=== PATIENT | female | born 1975 | race Caucasian/White ===

== ENCOUNTER 2016-12-21 10:00 | Emergency (ER) | payer BC, OTHER ==
[2016-12-21 10:23] VITALS: BP 147/100; PULSE 70; TEMP 97.4; BMI 25.4
[2016-12-21] MEDS ORDERED: ONDANSETRON 4 MG/2 ML VIAL IVPUSH ONE (11:25)
[2016-12-21] MEDS ORDERED: SODIUM CHLORIDE 1,000 ML IV STA (11:25)
[2016-12-21] MEDS ORDERED: KETOROLAC TROMETHAMINE 30 MG/1 ML VIAL IVPUSH ONE (11:25)
--- NOTE | 2016-12-21 11:28 | PDOC ---
History of Present Illness - General Chief Complaint: Pain, Acute Stated Complaint: VOMITING Time Seen by Provider: 12/21/16 10:54 History Source: Patient - History of Present Illness Timing/Duration: reports: getting worse Quality: reports: severe Abdominal Pain Onset Location: reports: LLQ, flank Past History - Past Medical History Allergies/Adverse Reactions: Allergies Allergy/AdvReac Type Severity Reaction Status Date / Time No Known Allergies Allergy Verified 12/21/16 10:20 Home Medications: Ambulatory Orders Cyclobenzaprine HCl [Flexeril -] 10 mg PO TID 12/21/16 Gabapentin [Neurontin -] 300 mg PO Q8H 12/21/16 Meloxicam [Mobic] 15 mg PO DAILY 12/21/16 Ondansetron HCl [Zofran] 4 mg PO Q8H #12 tablet 12/21/16 Tamsulosin HCl [Flomax] 0.4 mg PO DAILY #7 cap.er.24h 12/21/16 Tramadol HCl 50 mg PO Q6H #20 tablet MDD 200mg 12/21/16 Other medical history: neck pain - Immunization History Immunization Up to Date: Yes - Suicide/Smoking/Psychosocial Hx Smoking History: Never smoked Hx Alcohol Use: No Drug/Substance Use Hx: No Review of Systems - Review of Systems Constitutional: No: Chills, Fever ABD/GI: Yes: Nausea, Vomiting, Abdominal cramping. No: Constipated, Diarrhea : Yes: Flank Pain. No: Dysuria, Hematuria *Physical Exam - Vital Signs Last Vital Signs Temp Pulse Resp BP Pulse Ox 97.4 F L 70 20 147/100 100 12/21/16 10:20 12/21/16 10:20 12/21/16 10:20 12/21/16 10:20 12/21/16 10:20 - Physical Exam General Appearance: Yes: Appropriately Dressed, Severe Distress HEENT: positive: Normal Voice Neck: positive: Supple Respiratory/Chest: negative: Respiratory Distress Gastrointestinal/Abdominal: positive: Tender (to LLQ/flabk), Soft. negative: Distended, Guarding, Rebound Musculoskeletal: negative: CVA Tenderness Extremity: positive: Normal Inspection Integumentary: positive: Dry, Warm Neurologic: positive: Fully Oriented, Alert, Normal Mood/Affect ED Treatment Course - LABORATORY CBC & Chemistry Diagram: 12/21/16 11:50 12/21/16 11:50 - RADIOLOGY Radiology Studies Ordered: Category Date Time Status ABDOMEN & PELVIS CT W/O CONTR [CT] Stat CT Scan 12/21/16 11:26 Ordered Medical Decision Making - Medical Decision Making 12/21/16 11:26 41-year-old female, no significant history, coming in with sudden onset left flank/left lower quadrant pain that started this a.m. on her way to work and getting worse. Also complaining of multiple episodes of nausea, vomiting. No change in bowel movements, dysuria, hematuria or abnormal vag discharge. No fever or chills. No history of similar pain. No history of kidney stone. See exam R/o stone, possibly diverticulitis -pain control -zofran -IVF -labs -CT 12/21/16 15:45 B/l renal stones w/ 7 x 5 mm obstructing calculus at the L UVJ junction w/ mild hydro. Labs unremarkable. Pt much better w/ meds ds and requesting discharge. Rxs sent to pharmacy w/ referral 12/21/16 15:53 12/21/16 16:29 *DC/Admit/Observation/Transfer Diagnosis at time of Disposition: Renal colic on left side - Discharge Dispostion Disposition: HOME Condition at time of disposition: Improved - Prescriptions Prescriptions: Tamsulosin HCl [Flomax] 0.4 mg PO DAILY #7 cap.er.24h Tramadol HCl 50 mg PO Q6H #20 tablet MDD 200mg Ondansetron HCl [Zofran] 4 mg PO Q8H #12 tablet - Referrals Referrals: Aristeo Roque MD [Primary Care Provider] - Abiel Sharma MD., [Staff Physician] - - Patient Instructions Printed Discharge Instructions: Kidney Stones -- Adult Additional Instructions: You have a 7 mm stone on the left near bladder that will most likely pass on its own over the next several days. You were given medication to help with symptoms until stone has passed. Drink plenty of fluids as well. If pain persists or worsen, return to ER immediately. Please follow-up with Dr. Sharma of urology in 1-2 weeks - Post Discharge Activity Forms/Work/School Notes: Back to Work
[2016-12-21] MEDS ORDERED: ONDANSETRON 4 MG/2 ML VIAL ONE (11:35)
[2016-12-21] MEDS ORDERED: KETOROLAC TROMETHAMINE 30 MG/1 ML VIAL ONE (11:35)
[2016-12-21 11:57] LABS: BASOPHIL 0.5 % (0-2.0); EOSINOPHIL 0.5 % (0-4.5); MCH 32.8 pg (25.7-33.7); MCHC 33.3 g/dl (32.0-36.0); MEAN CELL VOLUME 98.6 fl (80-96); MEAN PLT VOLUME 10.9 fl (7.5-11.1); NEUTROPHILS 85.2 % (42.8-82.8); PLATELET COUNT 178 K/MM3 (134-434); RDW 12.6 % (11.6-15.6); WHITE BLOOD COUNT 11.4 K/mm3 (4.0-10.0)
[2016-12-21 12:27] LABS: ANION GAP 9 (8-16); CALCIUM 8.9 mg/dL (8.5-10.1); CO2 25 mmol/L (21-32); GLUCOSE,RANDOM 124 mg/dL (74-106)
[2016-12-21 12:35] LABS: ALK PHOS 58 U/L (45-117); BILIRUBIN,TOTAL 0.4 mg/dL (0.2-1.0); CREATININE 0.9 mg/dL (0.55-1.02); SGOT/AST 16 U/L (15-37); SGPT/ALT 37 U/L (12-78)
[2016-12-21] MEDS ORDERED: traMADol HCL 50 MG TABLET PO ONE (14:25)
[2016-12-21] MEDS ORDERED: traMADol HCL 50 MG TABLET ONE (14:46)
== END 2016-12-21 16:05 | disposition home or self-care (01) ==
LOC: JER 10:00
PROC: 3E0337Z Introduction of Electrolytic and Water Balance Substance into Peripheral Vein, Percutaneous Approach (ICD-10-PCS; principal; 2016-12-21)
PROC: 3E0333Z Introduction of Anti-inflammatory into Peripheral Vein, Percutaneous Approach (ICD-10-PCS; 2016-12-21)
PROC: 3E033GC Introduction of Other Therapeutic Substance into Peripheral Vein, Percutaneous Approach (ICD-10-PCS; 2016-12-21)
DX: N13.2 Hydronephrosis with renal and ureteral calculous obstruction (principal)
CPT/HCPCS: 36415; 74176-TC; 80053; 83690; 84702; 85025; 99281-25